=== PATIENT | female | born 1960 | race Caucasian/White ===

== ENCOUNTER 2017-06-29 09:16 | Emergency (ER) | payer MEDICAID | END 2017-06-29 09:25 | disposition left against medical advice (07) | LOC: ER 09:16 | DX: M79.643 Pain in unspecified hand (principal) ==

== ENCOUNTER 2018-03-19 09:39 | Emergency (ER) | payer MEDICAID, OTHER ==
--- NOTE | 2018-03-19 10:30 | ED Physician Chart ---
ED Chief Complaint/HPI - Patient Information Date Seen:: 03/19/18 Time Seen:: 09:55 Chief Complaint:: Fall History of Present Illness:: onset x 3 hours of a witnessed accidental fall with Right Shoulder pain, left ankle pain and left foot pain x 3 hours [employer]; no report of LOC, ALOC, AMS, syncope, NS, weakness, dizziness, paresthesias, vertigo, H/As, S/T, neck pain, C /P, SOB, cough, Abd. Pain, A/N/V/D/C, fever, chills, bleeding, or urinary s/s; pt's last tetanus shot: < 5 years; UTD; LNMP: pt is 8 years post-menopausal; pt denies Allergies:: Allergies Allergy/AdvReac Type Severity Reaction Status Date / Time Penicillins Allergy Verified 03/19/18 09:58 Vitals:: Vital Signs - 8 hr 03/19/18 03/19/18 09:53 10:04 Temp 99.2 F 99.2 F HR 86 89 RR 18 15 BP 126/57 126/57 O2 Sat % 98 96 Historian:: Patient, Family Member Review:: Nurse's Note Reviewed ED Review of Systems - Review of Systems General/Constitutional: No fever, No chills, No weight loss, No weakness, No diaphoresis, No edema, No loss of appetite Skin: No skin lesions, No rash, No bruising Head: No headache, No light-headedness Eyes: No loss of vision, No pain, No diplopia ENT: No earache, No nasal drainage, No sore throat, No tinnitus Neck: No neck pain, No swelling, No thyromegaly, No stiffness, No mass noted Cardio Vascular: No chest pain, No palpitations, No PND, No orthopnea, No edema Pulmonary: No SOB, No cough, No sputum, No wheezing GI: No nausea, No vomiting, No diarrhea, No pain, No melena, No hematochezia, No constipation, No hematemesis G/U: No dysuria, No frequency, No hematuria, No nacturia Receiver Stocker: No vaginal discharge, No abnormal vaginal bleed, No contraction Musculoskeletal: No bone or joint pain, No back pain, No muscle pain Endocrine: No polyuria, No polydipsia Psychiatric: No prior psych history, No depression, No anxiety, No suicidal ideation, No homicidal ideation, No auditory hallucination, No visual hallucination Hematopoietic: No bruising, No lymphadenopathy Allergic/Immuno: No urticaria, No angioedema Neurological: No syncope, No focal symptoms, No weakness, No paresthesia, No headache, No seizure, Dizziness, No confusion, Vertigo ED Past Medical History - Past Medical History Obtainable: Yes Past Medical History: HTN, Asthma/COPD, Dyslipidemia, PUD/GERD Family History: HTN Social History: Non Smoker, No Alcohol, No Drug Use, Surgical History: None Psychiatricy History: Depression Medication: Reviewed Family Medical History - Family Member Mother History Unknown: Yes ED Physical Exam - Physical Examination General/Constitutional: Awake, Well-developed, well-nourished, Alert, No distress, GCS 15, Non-toxic appearing, Ambulatory Head: Atraumatic Eyes: Lids, conjuctiva normal, PERRL, EOMI Skin: Nl inspection, No rash, No skin lesions, No ecchymosis, Well hydrated, No lymphadenopathy Other Skin comments:: Scattered Abrasions and Contusions; no cellulitis; no FBs; good NV functions ENMT: External ears, nose nl, TM canals nl, Nasal exam nl, Lips, teeth, gums nl , Oropharynx nl, Tonsils nl Neck: Nontender, Full ROM w/o pain, No JVD, No nuchal rigidity, No bruit, No mass, No stridor Other Neck comments:: supple; no meningeal signs; no cervical tenderness; no bruits Respiratory: Nl effort/Exclusion, Clear to Auscultation, No Wheeze/Rhonchi/Rales Cardio Vascular: RRR, No murmur, gallop, rubs, NL S1 S2, Carotid/Femoral/Distal pulses equal bilaterally GI: No tenderness/rebounding/guarding, No organomegaly, No hernia, Normal BS's, Nondistended, No mass/bruits, No McBurney tenderness, Rectum exam nl Other GI comments:: no pulsatile masses; good BS : No CVA tenderness Extremities: No tenderness or effusion, Full ROM, normal strength in all extremities, No edema, Normal digits & nails Other Extremities comments:: Left Ankle, Left Foot, and Right Shoulder tenderness with no loss of ROMs; no ligament instability; DTRs: 2+ bilaterally; Gait: WNL; good motor, tendon, and sensory functions; good NV functions; + Scattered Contusions and Abrasions; no Cellulitis; no septic joints; no FBs Neuro/Psych: Alert/oriented, DTR's symmetric, Normal sensory exam, Normal motor strength, Judgement/insight normal, Mood normal, Normal gait, No focal deficits Other Neuro/Psych comments:: no focal signs Misc: Normal back, No paraspinal tenderness ED Labs/Radiology/EKG Results - Lab Results Comments:: Reviewed - Radiology Results Comments:: ? Right Clavicle Fracture; pt deferred CAT Scans of the Cervical Spine and Head CAT Scan ED Septic Shock - . Is Septic Shock (SBP<90, OR Lactate>4 mmol\L) present?: No - <6hrs of presentation: Vital Signs: Vital Signs - 8 hr 03/19/18 03/19/18 09:53 10:04 Temp 99.2 F 99.2 F HR 86 89 RR 18 15 BP 126/57 126/57 O2 Sat % 98 96 ED Reassessment (Disposition) - Reassessment Reassessment:: pt is asymptomatic upon discharge Reassessment Condition:: Improved - Diagnosis Diagnosis:: Dx: Contusions and Abrasions; Sprains and Strains; Right Clavicle Fracture; Right Shoulder Sprains and Strains; Left Ankle and Left Foot Sprains and Strains ; Left Ankle and Left Foot Pain/Trauma/Injury; Accidental Fall; S/P Fall; Right Shoulder Pain/Trauma/Injury - Aftercare/Follow up Instructions Aftercare/Follow-Up Instructions:: Counseled pt regarding lab results/diagnosis & need follow up, Refer to Discharge Instructions, Counseled pt & family regarding lab results/diagnosis & need follow up - Patient Disposition Discharge/Transfer:: Home Condition at Disposition:: Stable, Improved (RTER prn if existing s/s reoccur and/or get worse and/or any other new s/s occur; X-Rays Instructions; ACIs given for all above Dx; Refer to Orthopedist/Tire Maker LAUREL; F/U with PMD in one day or prn; RTER prn if concerned)
--- NOTE | 2018-03-19 11:41 | Diagnostic Imaging Report ---
Right clavicle 2 views Indication: Trauma Comparison: none Findings: Mild to moderate degenerative changes noted the AC joint. No evidence of acute fracture or dislocation. No evidence of AC joint separation. No focal soft tissues. Impression: No evidence of an acute fracture. Mild to moderate AC joint degenerative changes. In the setting of trauma, if clinical symptoms persist and there is continued concern for an occult fracture, follow up exams in 5-7 days is suggested.
--- NOTE | 2018-03-19 11:42 | Diagnostic Imaging Report ---
Right shoulder 3 views Indication: Trauma Comparison: Right clavicle x-ray the same day Findings: Mild to moderate degenerative changes are noted greatest at the AC joint. No evidence of acute fracture dislocation. No significant focal soft tissue swelling. Impression: No evidence of an acute fracture. [id number] degenerative changes, greatest at the AC joint. In the setting of trauma, if clinical symptoms persist and there is continued concern for an occult fracture, follow up exams in 5-7 days is suggested.
--- NOTE | 2018-03-19 11:43 | Diagnostic Imaging Report ---
Left ankle 3 views Indication: Trauma Comparison: Left foot x-ray the same day Findings: No evidence of an acute fracture or dislocation. No significant focal soft tissue swelling. Impression: No evidence of an acute fracture. In the setting of trauma, if clinical symptoms persist and there is continued concern for an occult fracture, follow up exams in 5-7 days is suggested.
--- NOTE | 2018-03-19 11:53 | Diagnostic Imaging Report ---
Left foot 3 views Indication: Trauma Comparison: none Findings: Slight increased sclerotic density is seen involving the shaft of the third metatarsal. There may have been previous likely old trauma along the proximal metadiaphyseal region of the fourth metatarsal. Otherwise no evidence of an acute fracture or significant focal soft tissue swelling. Mild degenerative changes are noted. Impression: Questionable previous trauma to the proximal metaphysis of the fourth metatarsal, likely old. Please correlate with clinical findings and point tenderness in this region. Acute nondisplaced fracture is considered less likely. 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 Mild degenerative changes. In the setting of trauma, if clinical symptoms persist and there is continued concern for an occult fracture, follow up exams in 5-7 days is suggested.
== END 2018-03-19 12:17 | disposition home or self-care (01) ==
LOC: ER 09:39
DX: S42.001A Fracture of unspecified part of right clavicle, initial encounter for closed fracture (principal); S43.401A Unspecified sprain of right shoulder joint, initial encounter; S93.402A Sprain of unspecified ligament of left ankle, initial encounter; S93.602A Unspecified sprain of left foot, initial encounter; S96.912A Strain of unspecified muscle and tendon at ankle and foot level, left foot, initial encounter; S46.911A Strain of unspecified muscle, fascia and tendon at shoulder and upper arm level, right arm, initial encounter; I10 Essential (primary) hypertension; J45.909 Unspecified asthma, uncomplicated; E78.5 Hyperlipidemia, unspecified; K21.9 Gastro-esophageal reflux disease without esophagitis; F32.9 Major depressive disorder, single episode, unspecified; Z88.0 Allergy status to penicillin; W19.XXXA Unspecified fall, initial encounter; Y93.89 Activity, other specified; Y92.89 Other specified places as the place of occurrence of the external cause; Y99.8 Other external cause status
CPT/HCPCS: 73000-TC-RT; 73030-TC-RT; 73610-TC; 73630-TC-LT; Z7502